=== PATIENT | female | born 1975 | race Caucasian/White ===

== ENCOUNTER → 2019-12-24 09:51 | Outpatient (CLI) | payer OTHER, SELFPAY ==
--- NOTE | 2019-12-24 09:57 | CDU_ITS ---
Reason For Study: central retinal vein occlusion left eye Rt. Velocities/BP Lt. Velocities/BP Prox CCA 109.9/31.7 cm/sec. Prox CCA 99.5/26.5 cm/sec. Mid CCA 124.3/31.7 cm/sec. Mid CCA 115.2/34.3 cm/sec. Dist CCA 112.5/33.0 cm/sec. Dist CCA 107.3/36.9 cm/sec. Prox ICA 65.6/22.6 cm/sec. Prox ICA 74.7/27.8 cm/sec. Mid ICA 115.2/38.2 cm/sec. Mid ICA 82.6/34.3 cm/sec. Dist ICA 99.5/36.9 cm/sec. Dist ICA 85.1/40.8 cm/sec. Rt. ICA/CCA = .9. Lt. ICA/CCA = .7. Prox ECA 107.3/16.0 cm/sec. Prox ECA 108.6/20.0 cm/sec. Rt. Vert. 56.5/12.1 cm/sec. Lt. Vert. 52.5/18.6 cm/sec. Right Extracranial There is intimal thickening but no significant atherosclerotic plaque noted in the right common carotid artery. There is intimal thickening but no significant atherosclerotic plaque noted in the right internal carotid artery. There is intimal thickening but no significant atherosclerotic plaque noted in the right external carotid artery. Antegrade flow is noted in the right vertebral artery. Left Extracranial There is intimal thickening but no significant atherosclerotic plaque noted in the left common carotid artery. There is intimal thickening but no significant atherosclerotic plaque noted in the left internal carotid artery. There is intimal thickening but no significant atherosclerotic plaque noted in the left external carotid artery. Antegrade flow is noted in the left vertebral artery. Procedure Carotid Duplex [id number]. The exam was diagnostic. Exam performed in department. Interpretation Summary No significant atherosclerotic plaque or stenosis noted in the internal carotid arteries bilaterally. Flow within the vertebral arteries is antegrade bilaterally. Ordering Physician: Jose Palacio Performed By: Abelino Ferraro RVT
== END ==
PROVIDERS: PCP Family Medicine; Referring Provider Ophthalmology; Visit Provider Ophthalmology
DX: H34.8122 Central retinal vein occlusion, left eye, stable (principal)
CPT/HCPCS: 93880